=== PATIENT | male | born 1945 | race Caucasian/White ===

== ENCOUNTER 2020-10-16 20:44 | Emergency (ER) | payer MEDICARE, MEDICAID ==
[~2020-10-16] VITALS: Ht 182.9 cm; Wt 113.4 kg
[~2020-10-16 20:44] MED LIST: 24 HOUR ALLER15.8 ML NAS; ACTOS30 MG PO; ASPIRIN EC81 MG PO; CALCIUM 600 +1 EAC3 PO; CLARITIN10 MG PO; HUMULIN R100 UNIT/1 SUB-Q; HYDROCHLOROTHIA25 MG PO; INSULIN SYRING MISC; KLOR-CON 1010 MEQ PO; LANTUS100 UNITS/ SUB-Q; LASIX20 MG PO; METFORMIN HCL500 M1 PO; METOPROLOL TAR100 MG PO; METOPROLOL TART25 MG PO; ONGLYZA5 MG PO; POTASSIUM CHLO10 MEQ PO; SKIN TREATMENT225 GM TOP; ZOCOR20 MG PO
--- NOTE | 2020-10-17 06:33 | EKG ---
[facility] [address] [facility] [place] [address] Signed Sinus rhythm with short AL Left axis deviation Right bundle branch block T wave abnormality, consider lateral ischemia Abnormal ECG When compared with ECG of 01-JUL-2018 17:16, Sinus rhythm has replaced Wide QRS rhythm Confirmed by GOLDEN MARROQUIN MD ([id number]) on 10/17/2020 6:33:22 AM Electronically Signed By: GOLDEN MARROQUIN MD 10/17/20 0633 PATIENT NAME: BETTYSANTIAGO KORINA Electrocardiogram DATE OF : 45 PHYSICIAN: GOLDEN MARROQUIN MD REPORT #: [id number] REPORT IS CONFIDENTIAL AND NOT TO BE RELEASED WITHOUT AUTHORIZATION
== END 2020-10-17 00:48 | disposition short-term general hospital (02) ==
LOC: ED 20:44
DX: I62.9 Nontraumatic intracranial hemorrhage, unspecified (principal); N17.9 Acute kidney failure, unspecified; R77.8 Other specified abnormalities of plasma proteins; Z20.822 Contact with and (suspected) exposure to COVID-19; E11.9 Type 2 diabetes mellitus without complications; I10 Essential (primary) hypertension; Z79.899 Other long term (current) drug therapy; Z79.84 Long term (current) use of oral hypoglycemic drugs
CPT/HCPCS: 70450; 71045; 72125; 80053; 81001; 84484; 85025; 93005; 93010; 99285-25; C9803; U0003

== ENCOUNTER 2021-09-22 11:19 | Emergency (ER) | payer MEDICARE, OTHER ==
[~2021-09-22] VITALS: Ht 182.9 cm; Wt 113.4 kg
[2021-09-22] MEDS ORDERED: FINASTERIDE5 MG PO (12:01)
[2021-09-22] MEDS ORDERED: LISINOPRIL40 MG PO (12:01)
[2021-09-22] MEDS ORDERED: TAMSULOSIN HCL0.4 MG PO (12:01)
[2021-09-22] MEDS ORDERED: FUROSEMIDE40 MG PO (14:45)
[2021-09-22] MEDS ORDERED: ISOSORBIDE MONO20 MG PO (14:45)
--- NOTE | 2021-09-23 09:35 | EKG ---
[facility] [address] [facility] [place], [place] [address] Signed Atrial fibrillation Left axis deviation Right bundle branch block Septal infarct , age undetermined Abnormal ECG When compared with ECG of 16-OCT-2020 21:28, Atrial fibrillation has replaced Sinus rhythm QT has shortened Confirmed by MERCED PRYOR MD ([id number]) on 09/23/2021 9:35:36 AM Electronically Signed By: MERCED PRYOR MD 09/23/21 0935 PATIENT NAME: BETTYSANTIAGO KORINA Electrocardiogram DATE OF : 45 PHYSICIAN: MERCED PRYOR MD REPORT #: [id number] REPORT IS CONFIDENTIAL AND NOT TO BE RELEASED WITHOUT AUTHORIZATION
== END 2021-09-22 15:28 | disposition home or self-care (01) ==
LOC: ED 11:19
DX: I11.0 Hypertensive heart disease with heart failure (principal); I50.9 Heart failure, unspecified; E11.9 Type 2 diabetes mellitus without complications; Z79.899 Other long term (current) drug therapy; Z79.82 Long term (current) use of aspirin; Z79.84 Long term (current) use of oral hypoglycemic drugs; Z20.822 Contact with and (suspected) exposure to COVID-19
CPT/HCPCS: 36415; 71045; 80053; 83880; 84484; 85025; 93005; 93010; 96374; 99285-25; C9803; J1940; U0003

== ENCOUNTER 2022-03-12 00:08 | Emergency (ER) | payer MEDICARE, OTHER ==
[~2022-03-12] VITALS: Ht 182.9 cm; Wt 118.9 kg
[~2022-03-12 00:08] MED LIST changes: +FINASTERIDE5 MG PO; +FUROSEMIDE40 MG PO; +ISOSORBIDE MONO20 MG PO; +LISINOPRIL40 MG PO; +TAMSULOSIN HCL0.4 MG PO
[2022-03-12] MEDS ORDERED: VITAMIN C500 M5 PO (00:28)
[2022-03-12] MEDS ORDERED: FUROSEMIDE40 MG PO (03:03)
[2022-03-12] MEDS ORDERED: FINASTERIDE5 MG PO (03:03)
[2022-03-12] MEDS ORDERED: CALCIUM 600 MG1 EAC7 PO (03:03)
[2022-03-12] MEDS ORDERED: LO-DOSE ASPIRIN81 MG PO (03:03)
[2022-03-12] MEDS ORDERED: LISINOPRIL40 MG PO (03:04)
[2022-03-12] MEDS ORDERED: TAMSULOSIN HCL0.4 MG PO (03:04)
[2022-03-12] MEDS ORDERED: SIMVASTATIN20 MG PO (03:04)
[2022-03-12] MEDS ORDERED: VITAMIN B-121000 MCG PO (03:04)
[2022-03-12] MEDS ORDERED: LASIX40 MG PO (03:19)
[2022-03-12] MEDS ORDERED: KLOR-CON M2020 MEQ PO (03:21)
--- NOTE | 2022-03-13 09:51 | EKG ---
[facility] [address] [place] [address] Signed Sinus rhythm with 1st degree AV block Left axis deviation Right bundle branch block Anterior infarct (cited on or before 22-SEP-2021) T wave abnormality, consider lateral ischemia Abnormal ECG When compared with ECG of 22-SEP-2021 11:27, Sinus rhythm has replaced Atrial fibrillation Questionable change in initial forces of Anterior leads Inverted T waves have replaced nonspecific T wave abnormality in Lateral leads Confirmed by MERCED PRYOR MD ([id number]) on 03/13/2022 9:51:32 AM Electronically Signed By: MERCED PRYOR MD 03/13/22 0951 PATIENT NAME: SANTIAGO HERNÁNDEZ Electrocardiogram DATE OF : 45 PHYSICIAN: MERCED PRYOR MD REPORT #: [id number] REPORT IS CONFIDENTIAL AND NOT TO BE RELEASED WITHOUT AUTHORIZATION
--- NOTE | 2022-03-13 09:52 | EKG ---
[facility] [address] [facility] [place], [place] [address] Signed Wide QRS rhythm Left axis deviation Right bundle branch block Anterior infarct , age undetermined T wave abnormality, consider lateral ischemia Abnormal ECG No previous ECGs available Confirmed by MERCED PRYOR MD ([id number]) on 03/13/2022 9:52:28 AM Electronically Signed By: MERCED PRYOR MD 03/13/22 0952 PATIENT NAME: SANTIAGO HERNÁNDEZ Electrocardiogram DATE OF : 45 PHYSICIAN: MERCED PRYOR MD REPORT #: [id number] REPORT IS CONFIDENTIAL AND NOT TO BE RELEASED WITHOUT AUTHORIZATION
== END 2022-03-12 04:09 | disposition home or self-care (01) ==
LOC: ED 00:08
DX: I11.0 Hypertensive heart disease with heart failure (principal); I50.9 Heart failure, unspecified; D64.9 Anemia, unspecified; R77.8 Other specified abnormalities of plasma proteins; E11.9 Type 2 diabetes mellitus without complications; I25.10 Atherosclerotic heart disease of native coronary artery without angina pectoris; Z79.82 Long term (current) use of aspirin; Z79.899 Other long term (current) drug therapy; Z79.84 Long term (current) use of oral hypoglycemic drugs
CPT/HCPCS: 36415; 71045; 80053; 81001; 83540; 83550; 83880; 84484; 85025; 93005; 93010; 96374; 99285-25; A9270; J1940

== ENCOUNTER 2022-06-06 21:25 | Emergency (ER) | payer MEDICARE, OTHER ==
[~2022-06-06] VITALS: Ht 182.9 cm; Wt 118.8 kg
[~2022-06-06 21:25] MED LIST changes: +CALCIUM 600 MG1 EAC7 PO; +KLOR-CON M2020 MEQ PO; +LASIX40 MG PO; +LO-DOSE ASPIRIN81 MG PO; +SIMVASTATIN20 MG PO; +VITAMIN B-121000 MCG PO; +VITAMIN C500 M5 PO
[2022-06-07] MEDS ORDERED: ZINC50 MG PO (05:38)
--- NOTE | 2022-06-07 07:55 | EKG ---
[facility] [address] [facility] [place], [place] [address] Signed Wide QRS rhythm with premature supraventricular complexes in a pattern of bigeminy Left axis deviation Right bundle branch block Septal infarct , age undetermined Abnormal ECG No previous ECGs available Confirmed by GOLDEN MARROQUIN MD ([id number]) on 06/07/2022 7:55:44 AM Electronically Signed By: GOLDEN MARROQUIN MD 06/07/22 0755 PATIENT NAME: HERNÁNDEZSANTIAGODANISH HUI Electrocardiogram DATE OF : 45 PHYSICIAN: GOLDEN MARROQUIN MD REPORT #: [id number] REPORT IS CONFIDENTIAL AND NOT TO BE RELEASED WITHOUT AUTHORIZATION
== END 2022-06-07 01:40 | disposition short-term general hospital (02) ==
LOC: ED 21:25
DX: I62.00 Nontraumatic subdural hemorrhage, unspecified (principal); I11.0 Hypertensive heart disease with heart failure; I50.9 Heart failure, unspecified; I25.10 Atherosclerotic heart disease of native coronary artery without angina pectoris; Z79.899 Other long term (current) drug therapy; Z79.84 Long term (current) use of oral hypoglycemic drugs; Z20.822 Contact with and (suspected) exposure to COVID-19
CPT/HCPCS: 31500; 36415; 36556; 70450; 71045; 80048; 83880; 84484; 85025; 85610; 85730; 86850; 86900; 86901; 87502; 93005; 93010; 94002; 99285-25; J0461; J1940; J1953; J2704; U0003